=== PATIENT | male | born 1990 | race American Indian/Alaskan Native ===

== ENCOUNTER 2016-11-12 08:51 | Emergency (ER) | payer OTHER ==
[2016-11-12 09:03] VITALS: BP 126/65
--- NOTE | 2016-11-12 09:24 | Emergency Department Report ---
Chief Complaint: Abdominal Pain Stated Complaint: ABD PAIN Time Seen by Provider: 11/12/16 09:19 - HPI History of Present Illness: 26-year-old -[place] male comes in for complaint of abdominal pain off and on for a month. Patient reports that his appetite has been poor and he reports that he has nausea and vomiting sometimes. Patient reports he was sent home from work today because of abdominal pain to the point where it made him cry. Patient not actively vomiting on admission to the emergency room he denies any abdominal pain at this moment. Patient reports is moving his bowels making urine. Patient denies any dysuria denies any fever or chills - Exam Vital Signs: Vital Signs 11/12/16 08:57 Temperature 98.3 F Pulse Rate 62 Respiratory 20 Rate Blood Pressure 126/65 O2 Sat by Pulse 100 Oximetry Physical Exam: Is alert and oriented 3 cardiovascular S1-S2 regular rate and rhythm respiratory clear to auscultation bilaterally abdomen soft nontender nondistended bowel sounds are normal. MSE screening note: Focused history and physical exam performed. Due to findings the following was ordered: Patient's been evaluated by the [facility] E provider CBC CMP urinalysis lipase is been ordered patient to be evaluated Main ER ED Disposition for MSE Condition: Stable
[2016-11-12 09:39] LABS: Hematocrit 42.6 % (35.5-45.6); Hemoglobin 14.3 gm/dl (11.8-15.2); Mean Corpuscular HGB Conc 34 % (32-34); Mean Corpuscular Hemoglobin 28 pg (28-32); Mean Corpuscular Volume 84 fl (84-94); Platelet Count 158 K/mm3 (140-440); Red Blood Count 5.08 M/mm3 (3.65-5.03); Red Cell Distribution Width 14.4 % (13.2-15.2); White Blood Count 6.6 K/mm3 (4.5-11.0)
[2016-11-12 09:55] LABS: Anion Gap 17 mmol/L; BUN/Creatinine Ratio 12.22; Blood Urea Nitrogen 11 mg/dL (9-20); Calcium 9.4 mg/dL (8.4-10.2); Carbon Dioxide 26 mmol/L (22-30); Chloride 102.8 mmol/L (98-107); Glucose 106 mg/dL (75-100); Lipase 56 units/L (13-60); Sodium 142 mmol/L (137-145)
[2016-11-12 10:23] LABS: Bilirubin,Urine NEG (Negative); Blood,Urine NEG (Negative); Ketones,Urine NEG (Negative); Leukocyte Esterase,Urine NEG (Negative); Mucus,Urine FEW /HPF; Nitrite,Urine NEG (Negative); Protein,Urine <15 mg/dL mg/dL (Negative); Urobilinogen,Urine < 2.0 mg/dL (<2.0)
--- NOTE | 2016-11-13 14:46 | ED Elopement Review ---
ED Pt Elopement review - Results review Lab results: Laboratory Tests 11/12/16 11/12/16 11/12/16 09:31 09:31 09:59 WBC 6.6 RBC 5.08 H Hgb 14.3 Hct 42.6 MCV 84 MCH 28 MCHC 34 RDW 14.4 Plt Count 158 Sodium 142 Potassium 4.0 Chloride 102.8 Carbon Dioxide 26 Anion Gap 17 BUN 11 Creatinine 0.9 Estimated GFR > 60 BUN/Creatinine Ratio 12.22 Glucose 106 H Calcium 9.4 Lipase 56 Urine Color Yellow Urine Turbidity Clear Urine pH 7.0 Ur Specific [place] 1.020 Urine Protein <15 mg/dl Urine Glucose (UA) Neg Urine Ketones Neg Urine Blood Neg Urine Nitrite Neg Urine Bilirubin Neg Urine Urobilinogen < 2.0 Ur Leukocyte Esterase Neg Urine WBC (Auto) 1.0 Urine RBC (Auto) 3.0 U Epithel Cells (Auto) < 1.0 Urine Mucus Few - Call Back decision Pt Call Back Decision: No action required
== END 2016-11-12 09:45 | disposition left against medical advice (07) ==
LOC: ED 08:51
DX: R10.9 Unspecified abdominal pain (principal); Z53.21 Procedure and treatment not carried out due to patient leaving prior to being seen by health care provider
CPT/HCPCS: 36415; 80048; 81001; 83690; 85027

== ENCOUNTER 2017-10-10 11:20 | Emergency (ER) | payer SELFPAY ==
[2017-10-10 16:27] LABS: Basophils % (Auto) 0.2 % (0.0-1.8); Eosinophils % (Auto) 0.5 % (0.0-4.3); Hematocrit 46.9 % (35.5-45.6); Hemoglobin 15.7 gm/dl (11.8-15.2); Lymphocytes % (Auto) 26.2 % (13.4-35.0); Mean Corpuscular HGB Conc 34 % (32-34); Mean Corpuscular Hemoglobin 28 pg (28-32); Mean Corpuscular Volume 85 fl (84-94); Monocytes # (Auto) 0.4 K/mm3 (0.0-0.8); Monocytes % (Auto) 5.7 % (0.0-7.3); Platelet Count 161 K/mm3 (140-440); Red Blood Count 5.54 M/mm3 (3.65-5.03); Red Cell Distribution Width 14.9 % (13.2-15.2)
[2017-10-10 16:44] LABS: Alanine Aminotransferase 36 units/L (7-56); Albumin 4.6 g/dL (3.9-5); BUN/Creatinine Ratio 9; Blood Urea Nitrogen 8 mg/dL (9-20); Calcium 9.4 mg/dL (8.4-10.2); Hemolysis Index 7; Lipase 44 units/L (13-60)
--- NOTE | 2017-10-10 20:53 | Emergency Department Report ---
ED Abdominal Pain HPI - General Chief Complaint: Abdominal Pain Stated Complaint: IBS/FLU LIKE SYMPTOMS Time Seen by Provider: 10/10/17 20:43 Source: patient Mode of arrival: Ambulatory Limitations: No Limitations - History of Present Illness Initial Comments: Patient is 27 years old male, history of irritable bowel syndrome, presented to the ER with diffuse abdominal pain starting on for few months. Patient stated that his symptom is disc at worse for the last 3-4 days. The patient had full workup by GI doctor including endoscopy and colonoscopy and patient report that THIS came back negative. She denied any fever, nausea, vomiting or diarrhea. MD Complaint: abdominal pain -: Gradual Location: diffuse Radiation: none Migration to: no migration Severity scale (0 -10): 0 Quality: fullness Consistency: intermittent Improves With: bowel movement Associated Symptoms: denies: nausea, vomiting, diarrhea, fever, chills, constipation, dysuria, hematemesis, hematochezia, melena, hematuria, anorexia, syncope - Related Data Previous Rx's Medication Instructions Recorded Last Taken Type Promethazine [Phenergan] 25 mg PO Q6H PRN #10 tablet 12/13/14 Unknown Rx Allergies Allergy/AdvReac Type Severity Reaction Status Date / Time No Known Allergies Allergy Unverified 12/13/14 18:51 ED Review of Systems ROS: Stated complaint: IBS/FLU LIKE SYMPTOMS Other details as noted in HPI Comment: All other systems reviewed and negative Constitutional: denies: chills, fever Respiratory: denies: cough, shortness of breath, SOB with exertion Cardiovascular: denies: chest pain, palpitations Gastrointestinal: abdominal pain. denies: nausea, vomiting, diarrhea, constipation, hematemesis, melena, hematochezia Genitourinary: denies: urgency, dysuria, frequency, hematuria ED Past Medical Hx - Past Medical History Additional medical history: Partner is HIV positive, Pt on 6 month watch for HIV>, IBS - Surgical History Additional Surgical History: Colonoscopy and EGD 2016 - Social History Smoking Status: Never Smoker Substance Use Type: Alcohol - Medications Home Medications: Home Medications Medication Instructions Recorded Confirmed Last Taken Type Promethazine [Phenergan] 25 mg PO Q6H PRN #10 tablet 12/13/14 Unknown Rx ED Physical Exam - General Limitations: No Limitations General appearance: alert, in no apparent distress - Head Head exam: Present: atraumatic, normocephalic, normal inspection - Eye Eye exam: Present: normal appearance, PERRL - ENT ENT exam: Present: normal exam, normal orophraynx, mucous membranes moist - Neck Neck exam: Present: normal inspection, full ROM. Absent: tenderness, meningismus - Respiratory Respiratory exam: Present: normal lung sounds bilaterally. Absent: respiratory distress, wheezes, rales, rhonchi, stridor, chest wall tenderness, accessory muscle use, decreased breath sounds, prolonged expiratory - Cardiovascular Cardiovascular Exam: Present: regular rate, normal rhythm, normal heart sounds - GI/Abdominal GI/Abdominal exam: Present: soft, normal bowel sounds. Absent: distended, tenderness, guarding, rebound, rigid, organomegaly, mass, bruit, pulsatile mass , hernia - Extremities Exam Extremities exam: Present: normal inspection, full ROM, normal capillary refill - Back Exam Back exam: Present: normal inspection, full ROM. Absent: tenderness, CVA tenderness (R), CVA tenderness (L), muscle spasm, paraspinal tenderness, vertebral tenderness - Neurological Exam Neurological exam: Present: alert, oriented X3, CN II-XII intact, normal gait, reflexes normal. Absent: motor sensory deficit - Psychiatric Psychiatric exam: Present: normal affect, normal mood. Absent: suicidal ideation - Skin Skin exam: Present: warm, intact, normal color ED Course Vital Signs 10/10/17 10/10/17 14:24 20:27 Temperature 98.4 F 98.4 F Pulse Rate 64 60 Respiratory 18 18 Rate Blood Pressure 131/75 115/91 O2 Sat by Pulse 100 100 Oximetry ED Medical Decision Making - Lab Data Result diagrams: 10/10/17 15:59 10/10/17 15:54 Critical care attestation.: If time is entered above; I have spent that time in minutes in the direct care of this critically ill patient, excluding procedure time. ED Disposition Clinical Impression: Abdominal pain Disposition: -01 TO HOME OR SELFCARE Is pt being admited?: No Condition: Stable Instructions: Abdominal Pain (ED), Irritable Bowel Syndrome (ED) Referrals: PRIMARY CARE, [Primary Care Provider] - 3-5 Days JILLIAN ANNE MD [Staff Physician] - 3-5 Days
[2017-10-10 20:55] VITALS: BP 139/93
== END 2017-10-10 21:00 | disposition home or self-care (01) ==
LOC: ED 11:20
DX: R10.84 Generalized abdominal pain (principal)
CPT/HCPCS: 36415; 80053; 83690; 85025; 99283